=== PATIENT | female | born 1940 | race Caucasian/White ===

== ENCOUNTER 2018-11-26 22:46 | Inpatient (IN) ==
[2018-11-26] MEDS ORDERED: XOPENEX NEB INH ONE (23:03)
[2018-11-26] MEDS ORDERED: SOLU-MEDROL IV ONE (23:05)
[2018-11-26] MEDS ORDERED: ATROVENT NEB INH ONE (23:06)
[2018-11-26 23:13] LABS: BASO# 0.02 X1000 (0.0-0.2); BASO% 0.2 % (0.0-0.8); EOS# 0.29 X1000 (0.0-0.7); EOS% 2.4 % (0.0-10.0); HEMATOCRIT 36.8 % (37.0-47.0); HEMOGLOBIN 12.1 g/dL (12.0-16.0); IMM GRAN# 0.03 X1000 (0.0-0.04); IMM GRAN% 0.3 % (0.0-0.5); LYMPH# 2.07 X1000 (1.2-3.4); LYMPH% 17.3 % (20.5-51.1); MCH 30.3 PG (27-31); MCHC 32.9 g/dL (33-37); MCV 92.2 FL (81-99); MONO# 0.63 X1000 (0.11-0.59); MONO% 5.3 % (1.7-9.3); MPV 9.3 FL (7.4-10.4); NEUT# 8.91 X1000 (1.4-6.5); NEUT% 74.5 % (42.2-75.2); PLT 279 X1000 (130-400); RBC 3.99 XMIL (4.2-5.4); RDW 14.1 % (11.5-14.5); WBC 11.95 X1000 (4.8-10.8)
[2018-11-26 23:18] LABS: INR 0.98; PROTIME 13.5 Seconds (11.0-16.0)
[2018-11-26 23:37] LABS: ALBUMIN 4.2 g/dL (3.5-5.0); CALCIUM 9.3 mg/dL (8.8-10.2); CREATININE 1.5 mg/dL (0.5-0.9); TOTAL BILIRUBIN 0.3 mg/dL (0.20-1.00); TOTAL PROTEIN 7.2 g/dL (6.3-8.3)
--- NOTE | 2018-11-26 23:42 | PROVIDER DOCUMENTATION ---
This chart was entered by Samira Ventura Scribe, acting as scribe for Risa Olivia MD. HPI-Respiratory General - General Stated Complaint: SOB Time Seen by Provider: 11/26/18 22:52 Source: patient Allergies/Adverse Reactions: Patient Allergies Allergy/AdvReac Type Severity Reaction Status Date / Time moxifloxacin HCl * Allergy RASH Verified 09/10/18 17:53 [From Avelox] Sulfa (Sulfonamide Allergy RASH Verified 09/10/18 17:53 Antibiotics) Home Medications: Home Medication List Medication Instructions Recorded Confirmed Last Taken Type Levothyroxine [Synthroid] 25 microgm PO DAILY 11/03/12 11/27/18 11/09/16 08:00 History Simvastatin [Zocor] 20 mg PO HS 11/03/12 11/27/18 11/09/16 08:00 History Losartan/Hctz [Hyzaar 100/12.5 mg 1 tab PO DAILY 04/10/14 11/27/18 11/09/16 08:00 History Tab] Albuterol Sulfate Inhaler 2 puff INH BID 01/04/16 11/27/18 11/09/16 08:00 History [Ventolin Hfa] Ergocalciferol (Vitamin D2) 1 cap PO DIRECTED 01/04/16 11/27/18 11/09/16 08:00 History [Vitamin D] Acetaminophen with Codeine 1 each PO BID PRN #10 tablet 02/02/16 11/27/18 11/09/16 08:00 Rx [Tylenol with Codeine #3] Sitagliptin [Januvia] 1 tab PO DAILY 11/27/18 11/27/18 Unknown History - History of Present Illness-Resp Nature of Presenting Problem: 78yof presents to ED cc SOB and dry cough since Sunday that is getting worse. Pt reports she has been using her nebulizer and Delsem with no relief. She endorses some chills but did not take her temp at home. She has never smoked but has been exposed to 2nd hand smoke. Pt denies fever, sick contacts or home02. Pt has hx of COPD, HTN and DM. Quality of Pain: reports: tightness Severity in ED: reports: mild Onset/Duration: reports: 2 days ago Timing: reports: still present, constant, getting worse Cough Quality/Degree: reports: dry cough Current Respiratory Medication Therapy: Initiated see nurses note Modifying Factors: worse with: coughing, deep breath Associated Symptoms: reports: cough, heart racing, shortness of breath Similar Symptoms Previously?: No Recently seen or treated by another doctor?: No Review of Systems - Adult - REVIEW OF SYSTEMS - ADULT Constitutional: reports: see HPI, fatique. denies: chills, fever Eyes: reports: no symptoms reported Ears, Nose, Mouth & Throat: reports: no symptoms reported Cardiovascular: reports: no symptoms reported Respiratory: reports: see HPI, cough, shortness of breath. denies: wheezing Gastrointestinal: reports: no symptoms reported Genitourinary: reports: no symptoms reported Musculoskeletal: reports: no symptoms reported Integumentary: reports: no symptoms reported Neurological: reports: no symptoms reported Psychiatric: reports: no symptoms reported Endocrine: reports: no symptoms reported Hematologic/Lymphatic: reports: no symptoms reported Allergic/Immunologic: reports: no symptoms reported All Other Systems: Reviewed and Negative Past History - Adult - PAST MEDICAL HISTORY-ADULT Review of Records: reports: Old Records Reviewed, Nursing Assessment Review, Medications Reviewed, Social history reviewed & non-contributory. Major Childhood Illnesses: reports: denies history Cardiovascular: reports: HTN, hyperlipidemia Respiratory: reports: asthma, COPD Gastrointestinal: reports: denies history Obstetrical/Gynecological: reports: denies history Genitourinary: reports: denies history Musculoskeletal: reports: arthritis Neurological: reports: denies history Endocrine/Immune: reports: Diabetes, thyroid disorder Other Conditions: reports: other cancer (breast) - PRIOR SURGERIES/PROCEDURES Surgical/Procedure History: reports: cholecystectomy, hysterectomy, BTL, hernia repair, orthopedic (extremity), other (right breast lumpectomy) - IMMUNIZATION STATUS Childhood Immunizations: See Nurse Assessment Flu Vaccine: See Nurse Assessment - FAMILY HISTORY Family History: reviewed, not pertinent Physical Exam-General - PHYSICAL EXAM-ADULT Initial Vital Signs Reviewed: Yes - CONSTITUTIONAL General Appearance: alert, mild distress - EYES Eyes: PERRL/EOMI - HEAD, EARS, NOSE, MOUTH & THROAT HENMT: normocephalic/atraumatic, moist mucous membranes - RESPIRATORY Respiratory: chest non-tender, lungs clear, normal breath sounds, accessory muscle use (slight), other (mildly tachypneic). negative: crackles, rales, rhonchi, stridor, wheezing - CARDIOVASCULAR Cardiovascular: normal peripheral pulses, no edema, no murmur, tachycardia. negative: regular rate, rhythm, bradycardia - GASTROINTESTINAL (ABDOMEN) Abdominal Exam: normal bowel sounds, non tender, soft - MUSCULOSKELETAL Back Exam: normal inspection Extremity: normal inspection, no pedal edema, normal capillary refill. negative: deformity - SKIN Integumentary: normal color, normal turgor, warm/dry - NEUROLOGIC Neurologic: grossly normal - PSYCHIATRIC Psych/Mental Status: normal mood/affect, normal thought content, normal thought process, oriented x 3 Progress - PLAN OF CARE/RESULTS Progress/Plan/Lab Results: Vital Signs - 8 hr 11/26/18 22:49 11/26/18 23:08 Temperature 98.2 F Pulse Rate 109 H 107 H Respiratory Rate 24 28 H Blood Pressure 146/97 O2 Sat by Pulse Oximetry 98 98 Laboratory Results - last 24 hr 11/26/18 11/26/18 11/26/18 22:54 22:54 22:54 WBC 11.95 H RBC 3.99 L Hgb 12.1 Hct 36.8 L MCV 92.2 MCH 30.3 MCHC 32.9 L RDW Std Deviation 14.1 Plt Count 279 MPV 9.3 Immature Gran % (Auto) 0.3 Neut % (Auto) 74.5 Lymph % (Auto) 17.3 L Becker % (Auto) 5.3 Eos % (Auto) 2.4 Baso % (Auto) 0.2 Immature Gran # (Auto) 0.03 Neut # (Auto) 8.91 H Lymph # (Auto) 2.07 Becker # (Auto) 0.63 H Eos # (Auto) 0.29 Baso # (Auto) 0.02 PT INR Sodium 138 Potassium 3.8 Chloride 98 Carbon Dioxide 23 L Anion Gap 17 BUN 18 Creatinine 1.5 H Estimated GFR/1.73 m2 33 BUN/Creatinine Ratio 12 Glucose 204 H Calculated Osmolality 283 Calcium 9.3 Total Bilirubin 0.30 AST 18 ALT 9 L Alkaline Phosphatase 111 H Troponin T < 0.010 Fhv-B-Asmnzapqlks Pept Total Protein 7.2 Albumin 4.2 Globulin 3.0 Albumin/Globulin Ratio 1.0 11/26/18 11/26/18 22:54 22:54 WBC RBC Hgb Hct MCV MCH MCHC RDW Std Deviation Plt Count MPV Immature Gran % (Auto) Neut % (Auto) Lymph % (Auto) Becker % (Auto) Eos % (Auto) Baso % (Auto) Immature Gran # (Auto) Neut # (Auto) Lymph # (Auto) Becker # (Auto) Eos # (Auto) Baso # (Auto) PT 13.5 INR 0.98 Sodium Potassium Chloride Carbon Dioxide Anion Gap BUN Creatinine Estimated GFR/1.73 m2 BUN/Creatinine Ratio Glucose Calculated Osmolality Calcium Total Bilirubin AST ALT Alkaline Phosphatase Troponin T Dyt-E-Woayqxnzdhp Pept 202 Total Protein Albumin Globulin Albumin/Globulin Ratio Orders Category Date Time Status Admit - [facility] Routine AdmDCTranf 11/27/18 00:59 Active CHEST-PORTABLE [RAD] Stat Exams 11/27/18 00:02 Taken CBC WITH ELECTRONIC DIFF [HEME] Stat Lab 11/26/18 22:54 Completed COMPREHENSIVE METABOLIC PANEL [CHEM] Stat Lab 11/26/18 22:54 Completed PRO B-NATRIURETIC PEPTIDE Stat Lab 11/26/18 22:54 Completed PROTIME WITH INR [COAG] Stat Lab 11/26/18 22:54 Completed TROPONIN T Stat Lab 11/26/18 22:54 Completed Azithromycin 500 mg/Ns [Zithromax 500 mg/Ns] Med 11/27/18 01:00 Active 500 mg in 250 ml IV Q24H Ipratropium [place] Neb [Atrovent Neb] Med 11/26/18 23:06 Discontinued 0.5 mg INH NOW ONE Levalbuterol Neb [Xopenex Neb] Med 11/26/18 23:03 Discontinued 1.25 mg INH NOW ONE Levalbuterol Neb [Xopenex Neb] Med 11/27/18 04:00 Active 1.25 mg INH RTQ6H Methylprednisolone Sod Succ [Solu-Medrol] Med 11/26/18 23:05 Discontinued 125 mg IV NOW ONE Methylprednisolone Sod Succ [Solu-Medrol] Med 11/27/18 05:00 Active 125 mg IV Q6H Aerosol Treatments Routine Oth 11/26/18 23:06 Completed Aerosol Treatments Stat Oth 11/26/18 23:06 Completed Transfer/Admit Order [TRANSFER] Routine Transfer 11/27/18 01:00 Completed patient with clear breath sounds and only mildly tachypneic on arrival however initial SpO2 was 88% on room air. She was ambulated after steroids and breathing treatments without O2 and she desaturated again to 88%. She does not have any home O2. Spoke to Dr Willis who accepted patient for admission. Stable for floor. Wanted basic admission orders initiated. orders placed per his request. Result Diagrams: 11/26/18 22:54 11/26/18 22:54 - EKG 1 Time of EKG reading by physician:: 23:43 EKG Read and Signed by:: Risa Olivia EKG Interpretation (*Must complete 3 of following elements*): Abnormal Rate: 107 Rhythm: sinus tachycardia QRS: LBB ST Wave: normal Prior EKG Comparison: unchanged from prior (08/2018) - CONSULTS/PCP/HOSPITALIST Notification Time Discussed: 01:03 Consult Disposition: Admit Departure - Departure Date of Disposition Decision: 11/27/18 Time of Disposition Decision: 01:03 DIAGNOSIS: Pulmonary fibrosis, Cough, Hypoxia COPD (chronic obstructive pulmonary disease) Qualifiers: COPD type: chronic bronchitis Chronic bronchitis type: unspecified Qualified Code(s): J42 - Unspecified chronic bronchitis Disposition: ADMITTED INPATIENT 09 Certified Medical Emergency: Emergent Condition: Stable - Critical Care Note This patient required my direct & personal management of CC.: No Attestation - Physician/ JW Attestation Patient care was provided by Advanced Practice Provider:: No The physician spent face to face time with patient:: Yes Advanced Practice Provider documentation review:: Supervising physician onsite and consulted in the evaluation and care of this patient. The physician did have a face to face encounter with the patient. This chart was documented by the indicated scribe, (Samira Ventura Scribe) and accurately reflects the services I performed and decisions made by me, Risa Olivia MD, as attested by the provider's signature.
[2018-11-26 23:57] LABS: POTASSIUM 3.8 mmol/L (3.5-5.1)
[2018-11-27] MEDS: ZITHROMAX 500 MG/NS 500 MG/250 ML IVPB IV SCH (01:17)
[2018-11-27 02:55] LABS: BILIRUBIN URINE NEGATIVE (NEGATIVE); BLOOD URINE NEGATIVE (NEGATIVE); GLUCOSE URINE NEGATIVE (NEGATIVE); KETONE URINE NEGATIVE (NEGATIVE); LEUKOCYTES URINE 2+ (NEGATIVE); NITRITE URINE NEGATIVE (NEGATIVE); PROTEIN URINE NEGATIVE (NEGATIVE); UROBILINOGEN URINE NORMAL
[2018-11-27 02:56] LABS: CLARITY SL. CLOUDY (CLEAR); COLOR YELLOW
[2018-11-27 02:57] LABS: URINE BACTERIA 4+ /HFP; URINE WBC TNTC /HPF (<10)
[2018-11-27 02:58] LABS: URINE EPITHELIAL CELLS <10 /HPF (<10)
[2018-11-27 02:59] LABS: URINE CAST NONE SEEN /LPF; URINE CRYSTAL NONE SEEN /HPF; URINE RBC <10 /HPF (<10); URINE SOURCE CLEAN CATCH; URINE YEAST NONE SEEN /HPF
[2018-11-27] MEDS: XOPENEX NEB INH SCH ×2 (04:48→09:29)
[2018-11-27] MEDS ORDERED: SOLU-MEDROL IV SCH ×2 (05:00→12:00)
--- NOTE | 2018-11-27 06:36 | Diag Imaging Result Doc PS360 ---
CHEST-PORTABLE - 11/27/2018 INDICATION: copd COMPARISON: 09/10/2018 FINDINGS: Stable severe coarse peripheral pulmonary fibrosis. No new infiltrates or edema. Heart size remains normal. IMPRESSION: Severe pulmonary fibrosis. Electronically signed by Best Hernández 11/27/2018 6:33 AM
[2018-11-27] MEDS ORDERED: HYZAAR 100/12.5 MG TAB PO SCH (09:00)
[2018-11-27] MEDS ORDERED: VENTOLIN HFA INH SCH ×2 (09:00→19:30)
--- NOTE | 2018-11-27 10:53 | HISTORY AND PHYSICAL ---
PRIMARY CARE PHYSICIAN: KAREN Lebron. CHIEF COMPLAINT: Shortness of breath, cough, and chills since Sunday that has progressively worsened. HISTORY OF PRESENTING ILLNESS: This is an 78-year-old female who presents to [facility] ER with complaints of shortness of breath, and a dry cough with chills since Sunday that progressively worsened. While in the emergency room, she was found to have an O2 saturation on room air of 88% and was given breathing treatments and steroids in the emergency room. They took her O2 off and ambulated her, and her O2 saturation dropped again to 88%. She does not use O2 at home. Her chest x-ray showed severe pulmonary fibrosis. Laboratory Data showed a white blood cell count of 11.95. Urinalysis showed negative nitrites, 2+ white blood cells and 4+ bacteria so it is possible she also has a little bit of urinary tract infection. We will await on the urine culture. Denied any burning or hurting with urination so she was admitted for further evaluation and treatment. PAST MEDICAL HISTORY: 1. Right breast cancer in 2004. 2. COPD. 3. Diabetes type 2. 4. Pulmonary fibrosis, 5. Hypertension. 6. Hypothyroidism. 7. Chronic kidney disease stage 3. 8. Hyperlipidemia. PAST SURGICAL HISTORY: Right breast lumpectomy, cholecystectomy, cataract removal, hernia repair, hysterectomy and bilateral tubal ligation. FAMILY HISTORY: Reviewed and noncontributory. SOCIAL HISTORY: She currently lives alone. Denies any tobacco, alcohol or illicit drug use. ALLERGIES: Moxifloxacin and sulfa drugs. HOME MEDICATIONS: 1. She takes Tylenol with codeine #3 one p.o. b.i.d. p.r.n. cough. 2. Ventolin inhaler 2 puffs b.i.d. 3. Vitamin D2 40300 units as directed. 4. Synthroid 25 mcg p.o. daily. 5. Hyzaar 100/12.5 one p.o. daily. 6. Simvastatin 20 mg p.o. at bedtime. 7. Januvia 100 mg p.o. daily. LABORATORY DATA: White blood cell count of 11.95, hemoglobin 12.1, hematocrit 36.8, and platelets 279,000. PT and INR of 13.5 and 0.98. Sodium 138, potassium 3.8, chloride 98, CO2 23, BUN of 18, creatinine 1.5, and glucose 204. Troponin was negative. ProBNP 202. Urinalysis showed negative nitrites, 2+ white blood cells, and 4+ bacteria. Chest x-ray showed severe pulmonary fibrosis. REVIEW OF SYSTEMS: She denied any fever. She was positive for chills. No blurred vision, dizziness or chest pain. She has had a nonproductive cough and shortness of breath. Denied any abdominal pain, constipation, diarrhea, burning or hurting with urination. PHYSICAL EXAMINATION: On arrival, she had a temperature of 98.2 degrees, pulse 109, respirations 24, blood pressure 146/97. Per ER physician documentation, she had an O2 saturation on arrival of 88% on room air and was saturating 98% after being placed on O2 via nasal cannula. Again, after she received breathing treatments and steroids, they took her oxygen off and ambulated her again and she desatted once again to 88%, but currently is at 98% on her 2 L. GENERAL: This is an 78-year-old female who is lying in the bed and answers questions appropriately. HEENT: Normocephalic, atraumatic. Normal ENT inspection. Oropharynx and nares are clear. NECK: Normal inspection. Normal range of motion. EYES: Pupils are equal, round, reactive to light and accommodation. Extraocular movements are intact. LUNGS: Clear to auscultation bilaterally with equal lung expansion and chest wall movement. HEART: Regular rate and rhythm. No murmurs, rubs, or gallops. ABDOMEN: Soft, nontender, nondistended. Bowel sounds are present x4 quadrants. MUSCULOSKELETAL: She has 5/5 strength x4 extremities. NEUROLOGICAL: The cranial nerves 2-12 appear grossly intact. ASSESSMENT: 1. An acute chronic obstructive pulmonary disease exacerbation. 2. Hypoxemia. 3. Possible UTI. 4. Diabetes. 5. Hypertension. 6. Hypothyroidism. 7. Severe pulmonary fibrosis. PLAN: She will be admitted to the medical unit. Placed on O2 per protocol and telemetry. Placed on a healthy heart diet. We will place her on Solu-Medrol 80 mg IV q.8h and wean as she improves. Rocephin 1 gram IV q.24, azithromycin 500 IV every 24. Continue her home medications as previously identified. Recheck a CBC and BMP in the morning. Urine culture is pending. Further orders after seen by attending. Dictated by KAREN Villarreal for Henrique Willis MD cc: KAREN Villarreal MD Kim Young, CRNP
[2018-11-27] MEDS: HYDROCHLOROTHIAZIDE PO SCH (11:13)
[2018-11-27] MEDS: SYNTHROID PO SCH (11:13)
[2018-11-27] MEDS: COZAAR PO SCH (11:13)
[2018-11-27] MEDS: JANUVIA PO SCH (11:13)
[2018-11-27] MEDS: ROCEPHIN 1 GM in NS 50 ML IV SCH (11:14)
[2018-11-27] MEDS ORDERED: ROBITUSSIN-AC PO ONE (15:07)
--- NOTE | 2018-11-27 15:33 | HISTORY AND PHYSICAL ---
CHIEF COMPLAINT: Shortness of breath. OBJECTIVE: Blood pressure 117/64. The patient has had a significant cough now for a while, associated with multiple issues. However, she has a history of pulmonary fibrosis; it is followed by Dr. Smiley. Betzy Guthrie have not helped. So in any case, she is coughing up a lot and she has pulmonary fibrosis. No pneumonia. Possible UTI. She will be put in for breathing treatments, steroids, antibiotics. I am going to do a CT of her chest just to better clarify the extent of her fibrosis. I do not see a CT since 2016. She has seen Dr. Smiley in the past and make sure she has follow-up there. We will get an echo to rule out CHF, just because she is complaining of orthopnea which has progressed over the last couple weeks, although there is no other clear evidence of CHF. Also evaluate for pulmonary hypertension. Overall she has improved. She has frequent UTIs and discussed that she may have some bladder incontinence issues or retention and she may need treatment as such. Diabetes is also not well controlled and that may be exacerbated by steroid, so we will continue to monitor that closely. This is a [id number] encounter note with KAREN Villarreal. cc: Henrique Willis MD
[2018-11-27] MEDS: DUONEB (A & A) INH SCH ×2 (15:36→20:42)
[2018-11-27] MEDS: HUMALOG (PARKWAY) SUBQ SCH ×2 (16:54→22:13)
[2018-11-27] MEDS: ZOCOR PO SCH (22:13)
[2018-11-27] MEDS: SOLU-MEDROL IV SCH (22:14)
[2018-11-28] MEDS: ZITHROMAX 500 MG/NS 500 MG/250 ML IVPB IV SCH (00:48)
[2018-11-28] MEDS: SOLU-MEDROL IV SCH ×3 (05:53→21:16)
[2018-11-28] MEDS: SYNTHROID PO SCH ×2 (05:53→06:04)
[2018-11-28] MEDS: LOVENOX SUBQ SCH (05:53)
[2018-11-28] MEDS: HUMALOG (PARKWAY) SUBQ SCH ×4 (06:03→21:38)
[2018-11-28 06:16] LABS: BASO# 0.01 X1000 (0.0-0.2); BASO% 0.1 % (0.0-0.8); HEMATOCRIT 31.1 % (37.0-47.0); HEMOGLOBIN 10.2 g/dL (12.0-16.0); IMM GRAN# 0.07 X1000 (0.0-0.04); IMM GRAN% 0.4 % (0.0-0.5); LYMPH# 1.06 X1000 (1.2-3.4); LYMPH% 6.1 % (20.5-51.1); MCH 29.9 PG (27-31); MCHC 32.8 g/dL (33-37); MCV 91.2 FL (81-99); MONO# 0.43 X1000 (0.11-0.59); MONO% 2.5 % (1.7-9.3); MPV 9.7 FL (7.4-10.4); NEUT# 15.68 X1000 (1.4-6.5); NEUT% 90.9 % (42.2-75.2); PLT 243 X1000 (130-400); RBC 3.41 XMIL (4.2-5.4); WBC 17.25 X1000 (4.8-10.8)
[2018-11-28 06:44] LABS: CALCIUM 8.3 mg/dL (8.8-10.2); CREATININE 1.5 mg/dL (0.5-0.9)
[2018-11-28 06:54] LABS: LYMPHS 8 % (21-51); MONO 2 % (1-9); SEGS 90 % (42-75)
[2018-11-28 07:09] LABS: HEMOGLOBIN A1C 5.9 % (4.8-6.0)
--- NOTE | 2018-11-28 07:40 | EKG Report ---
Test Performed on : 11/26/2018 11:00:40 PM Test Reason : SOB Blood Pressure : / mmHG Vent. Rate : 107 BPM Atrial Rate : 107 BPM P-R Int : 142 ms QRS Dur : 126 ms QT Int : 372 ms P-R-T Axes : 070 -14 021 degrees QTc Int : 496 ms Sinus tachycardia. Left bundle branch block Abnormal ECG When compared with ECG of 10-SEP-2018 17:51, T wave inversion no longer evident in Lateral leads Unconfirmed Result
[2018-11-28] MEDS: ROCEPHIN 1 GM in NS 50 ML IV SCH (08:08)
[2018-11-28] MEDS: COZAAR PO SCH (08:08)
[2018-11-28] MEDS: JANUVIA PO SCH (08:08)
[2018-11-28] MEDS: HYDROCHLOROTHIAZIDE PO SCH (08:08)
[2018-11-28] MEDS: DUONEB (A & A) INH SCH ×3 (11:12→22:30)
[2018-11-28] MEDS: ROBITUSSIN-AC PO PRN (11:27)
[2018-11-28] MEDS ORDERED: NS 1,000 ML IV ONE (12:02)
--- NOTE | 2018-11-28 12:04 | Diag Imaging Result Doc PS360 ---
EXAM: CT THORAX W/O CONTRAST - 11/28/2018 HISTORY: fibrosis TECHNIQUE: CT thorax without contrast. No contrast administered per request of the referring provider. COMPARISON: 02/28/2016 FINDINGS: There is extensive bilateral pulmonary fibrosis. The scarring appears mildly progressive compared to the prior exam, with some apparent decrease in lung volumes. There is a 1.1 cm nodular opacity at the posterior left apex which has enlarged from 0.9 cm on prior exam. However, this likely represents a component of scarring, rather than a distinct lesion. Similar opacity at the posterior right apex has decreased mildly in size. There is no discrete acute consolidation identified. There is no pleural effusion or pneumothorax identified. There is mild mediastinal adenopathy similar to prior. There is a large hiatal hernia similar to prior. There is a possible small right adrenal adenoma which is stable. IMPRESSION: Extensive bilateral pulmonary fibrosis. This appears mildly progressive compared to 02/28/2016, with associated mild decrease in lung volumes. No discrete pneumonia. Mild increase in nodular opacity at posterior left apex. This likely represents a component of scarring, rather than a distinct lesion. Stable mildly mediastinal adenopathy. Large hiatal hernia. This exam was performed using automated exposure control, adjustment of mA or kV according to patient size, and/or use of iterative reconstruction technique. Electronically signed by Kelby Angel 11/28/2018 12:02 PM
[2018-11-28] MEDS: TYLENOL WITH CODEINE #3 PO PRN ×2 (14:21→21:16)
--- NOTE | 2018-11-28 16:29 | ECHO REPORT ---
ORDER DATE: 11/28/2018 INDICATION: CHF, COPD, hypertension, and hyperlipidemia. FINDINGS: 1. The right atrium appears normal in size. 2. Mild tricuspid regurgitation. RV systolic pressure of 33. 3. Normal RV size and systolic function. 4. Mild pulmonic insufficiency. 5. Mild left atrial enlargement with dimension of 4.1 cm. 6. No mitral valve prolapse. Trace of mitral regurgitation. No evidence of mitral stenosis. 7. Normal LV size, end-diastolic dimension of 4.8. Normal wall thicknesses with posterior and interventricular septal wall thicknesses of 0.8 cm each. Normal LV systolic function. Estimated EF is 60% with normal wall motion. 8. The aortic valve opens well. It is trileaflet. No evidence of stenosis or insufficiency. 9. The aorta appears normal in visualized segments. 10. No pericardial effusion seen. cc: MD Henrique Adams MD
--- NOTE | 2018-11-28 16:57 | PROGRESS NOTE ---
DATE: 11/28/2018 SUBJECTIVE: Patient has no major complaints. OBJECTIVE: Blood pressure 109/60, heart rate of 83, respiratory rate of 20, temperature 98.1 degrees, 100% on 2 L.Cardiovascular: Regular rate and rhythm. Pulmonary: Bilateral breath sounds diminished at the bases. Gastrointestinal: Soft, nontender, nondistended. Bowel sounds are positive. LABORATORY DATA: White count 17, hemoglobin 10, hematocrit 31, platelets 243,000. Sodium is down to 129, BUN and creatinine are up to 32 and 1.5, sugar 262. MICROBIOLOGICAL DATA: Shows gram-negative julissa. PROBLEM LIST: 1. Pulmonary fibrosis with some underlying bronchitis. CT scan shows progression in pulmonary fibrosis in the last 3 years, which is not unexpected. She has much improved, though, as far as breathing, coughing since the addition of steroids, antibiotics so we will continue that for the time being. It is not clear if she has a diagnosis of COPD, but she does have a diagnosis of pulmonary fibrosis. After discharge we will arrange follow-up with Dr. Smiley. He has seen her in the past. She may need repeat pulmonary function tests. We will continue antibiotics. I am going to wean steroids a little bit today. 2. Urinary tract infection. She has frequent UTIs. Urine shows a UTI this time. She is not complaining of symptoms per se, but she was on treatment for UTI about a week ago so we will adjust her antibiotics accordingly based on that. 3. Hypothyroidism, stable. Continue to follow. DISPOSITION: I anticipate that if she does not need any long acting oxygen, would anticipate possible discharge tomorrow. cc: Henrique Willis MD [facility]
[2018-11-28] MEDS ORDERED: ZITHROMAX PO SCH (21:00)
[2018-11-28] MEDS: ZOCOR PO SCH (21:16)
[2018-11-29] MEDS: SOLU-MEDROL IV SCH ×2 (05:27→14:31)
[2018-11-29] MEDS: LOVENOX SUBQ SCH (05:27)
[2018-11-29] MEDS: SYNTHROID PO SCH (06:23)
[2018-11-29 06:26] LABS: BASO# 0.01 X1000 (0.0-0.2); BASO% 0.1 % (0.0-0.8); HEMATOCRIT 32.8 % (37.0-47.0); HEMOGLOBIN 10.6 g/dL (12.0-16.0); IMM GRAN% 0.6 % (0.0-0.5); LYMPH# 1.26 X1000 (1.2-3.4); LYMPH% 8.1 % (20.5-51.1); MCH 29.9 PG (27-31); MCHC 32.3 g/dL (33-37); MCV 92.7 FL (81-99); MONO# 0.46 X1000 (0.11-0.59); MPV 9.3 FL (7.4-10.4); NEUT% 88.2 % (42.2-75.2); PLT 291 X1000 (130-400); RBC 3.54 XMIL (4.2-5.4); RDW 14.6 % (11.5-14.5); WBC 15.53 X1000 (4.8-10.8)
[2018-11-29 06:42] LABS: CALCIUM 8.6 mg/dL (8.8-10.2); CREATININE 1.6 mg/dL (0.5-0.9); POTASSIUM 4.9 mmol/L (3.5-5.1)
[2018-11-29] MEDS: HUMALOG (PARKWAY) SUBQ SCH ×3 (06:59→17:38)
[2018-11-29 07:32] LABS: BANDS 2 % (0-1); LYMPHS 9 % (21-51); MONO 4 % (1-9); SEGS 85 % (42-75)
[2018-11-29] MEDS: ROCEPHIN 1 GM in NS 50 ML IV SCH (08:56)
[2018-11-29] MEDS: COZAAR PO SCH (08:56)
[2018-11-29] MEDS: JANUVIA PO SCH (08:57)
[2018-11-29] MEDS: ROBITUSSIN-AC PO PRN (09:45)
[2018-11-29] MEDS: DUONEB (A & A) INH SCH ×2 (10:31→15:53)
[2018-11-29] MEDS ORDERED: PRILOSEC PO ONE (10:42)
[2018-11-29] MEDS: CARAFATE PO SCH ×2 (12:39→17:39)
[2018-11-29 13:19] VITALS: BP 136/70
[2018-12-01] MEDS ORDERED: VITAMIN D PO SCH (09:00)
--- NOTE | 2018-12-01 13:29 | DISCHARGE SUMMARY ---
ADMISSION DATE: 11/27/2018 DISCHARGE DATE: 11/29/2018 DISCHARGE DIAGNOSES: 1. Pulmonary fibrosis with bronchitis. 2. Escherichia coli urinary tract infection. 3. Hypothyroidism. CONSULTATIONS: None. HISTORY AND HOSPITAL COURSE: Briefly, this is an 78-year-old female presenting with shortness of breath and cough. She has history of breast cancer, COPD. She was placed on breathing treatments, steroids, and had possible UTI that was recently treated. She was placed on Rocephin, azithromycin, steroids. Echocardiogram was obtained, which showed an EF of 60%, otherwise no major issues. She was slowly improved. We did go ahead and do a chest CT, which showed extensive bilateral pulmonary fibrosis which showed mild progression since 2016, without clear evidence of pneumonia. However, she clinically improved with treatment, so we continued for the time being, and her micro also showed Escherichia coli, for which she had some symptoms of bladder fullness. Her white count fluctuated, 11,000, then 17,000, then 15,000 at discharge. Her sodium also fluctuated a bit. Creatinine was around 1.5 to 1.6. By 11/29/2018, she was breathing comfortably on room air at 97%, no rales, no rhonchi, and she was motivated to go home, so we sent her home on Hyzaar 100/12.5 daily, Januvia 100 daily, Prilosec 20 daily, Synthroid 25 daily, Ventolin 2 puffs b.i.d., vitamin D2 at 50,000 units weekly, Zocor 20, Omnicef 300 p.o. b.i.d. for 7 days, prednisone taper 30 for 3 days, 20 for 3 days, Tylenol, and azithromycin 500 at bedtime for 5 days. She is to follow up with Dr. Smiley. I think she has an appointment in the next month or so to re-evaluate her pulmonary fibrosis. Return for worsening cough, shortness of breath, or fevers. TIME SPENT: This is a 33-minute discharge. cc: MD Eryn Guevara MD
== END 2018-11-29 19:01 | disposition home or self-care (01) | DRG 202 ==
LOC: P.MEDSURG 22:46 → P.ED 22:46
PROVIDERS: ATTEND Internal Medicine
CPT/HCPCS: 71010; 71045; 71250; 80048; 80053; 81001; 82948; 83036; 83880; 84484; 85025; 85610; 87077; 87088; 87186; 93005; 93306; 94640; 94761; A9270; J0456; J0696; J1650; J1815; J2920; J2930; J7030; XXXXX